=== PATIENT | male | born 1960 | race Caucasian/White ===

== ENCOUNTER 2024-07-08 13:29 | Inpatient (IN) | payer BC ==
--- NOTE | 2024-07-08 13:53 | ED ---
General Adult HPI - General Chief complaint: Recheck/Abnormal Lab/Rx Stated complaint: cough Time Seen by Provider: 07/08/24 13:31 Source: patient, EMS, RN notes reviewed Mode of arrival: EMS Limitations: no limitations - History of Present Illness Initial comments: Patient is a 63-year-old male presenting to the emergency department from urgent care with concerns for A-fib. Patient states for the past week he has had cough and congestion. Green sputum. Nasal drainage. Patient has been very fatigued and having problems sleeping. Patient has orthopnea. No leg edema. No chest pain or palpitations. No history of dysrhythmia. - Related Data Home Medications Medication Instructions Recorded Confirmed No Known Home Medications 10/22/15 07/08/24 Allergies Allergy/AdvReac Type Severity Reaction Status Date / Time No Known Allergies Allergy Verified 07/08/24 14:44 Review of Systems ROS Statement: Those systems with pertinent positive or pertinent negative responses have been documented in the HPI. ROS Other: All systems not noted in ROS Statement are negative. Constitutional: Denies: fever Eyes: Denies: eye pain ENT: Reports: congestion. Denies: ear pain Respiratory: Reports: as per HPI, cough Cardiovascular: Reports: orthopnea. Denies: chest pain, palpitations, edema Endocrine: Reports: fatigue Gastrointestinal: Denies: abdominal pain Genitourinary: Denies: dysuria Past Medical History Past Medical History: No Reported History History of Any Multi-Drug Resistant Organisms: None Reported Past Surgical History: Hernia Repair Past Anesthesia/Blood Transfusion Reactions: No Reported Reaction Past Psychological History: No Psychological Hx Reported Past Alcohol Use History: Daily Past Drug Use History: None Reported - Past Family History Mother Family Medical History: No Reported History General Exam Limitations: no limitations General appearance: alert, in no apparent distress Head exam: Present: normocephalic Eye exam: Present: normal appearance Neck exam: Present: normal inspection Respiratory exam: Present: rales, rhonchi Cardiovascular Exam: Present: tachycardia, irregular rhythm Expanded Peripheral pulses: 2+: Radial (R), Radial (L), Posterior Tibialis (R), Posterior Tibialis (L) GI/Abdominal exam: Present: soft. Absent: tenderness Extremities exam: Present: normal inspection. Absent: pedal edema, calf tenderness Neurological exam: Present: alert Psychiatric exam: Present: normal affect, normal mood Skin exam: Present: normal color Course Vital Signs 07/08/24 07/08/24 13:32 14:23 Temperature 98.1 F Pulse Rate 176 H 172 H Respiratory 20 18 Rate Blood Pressure 122/105 136/110 O2 Sat by Pulse 100 100 Oximetry EKG Findings - EKG Results: EKG: interpreted by ERMD (T wave inversion laterally), normal axis, normal QRS EKG shows: tachycardia, atrial fibrillation Medical Decision Making - Medical Decision Making Was pt. sent in by a medical professional or institution (, PA, CARE CENTER MANAGER, urgent care, hospital, or snf...) When possible be specific @ -No Did you speak to anyone other than the patient for history (EMS, parent, family, police, friend...)? What history was obtained from this source @ -No Did you review nursing and triage notes (agree or disagree)? Why? @ -I reviewed and agree with nursing and triage notes Were old charts reviewed (outside hosp., previous admission, EMS record, old EKG, old radiological studies, urgent care reports/EKG's, snf records)? Report findings @ -No old charts were reviewed Differential Diagnosis (chest pain, altered mental status, abdominal pain women, abdominal pain men, vaginal bleeding, weakness, fever, dyspnea, syncope, headache, dizziness, GI bleed, back pain, seizure, CVA, palpatations, mental health, musculoskeletal)? @ -Differential Palpitations Ventricular arrhythmias, atrial arrhythmias, myocardial infarction, anemia, thyrotoxicosis, electrolyte imbalance, hypokalemia, pulmonary embolism, pulmonary disease, drugs, alcohol, anxiety, stress.... This is not meant to be an all-inclusive list. EKG interpreted by me (3pts min.). @ -As above X-rays interpreted by me (1pt min.). @ -Chest x-ray shows left lower lobe infiltrate CT interpreted by me (1pt min.). @ -None done U/S interpreted by me (1pt. min.). @ -None done What testing was considered but not performed or refused? (CT, X-rays, U/S, labs)? Why? @ -None What meds were considered but not given or refused? Why? @ -None Did you discuss the management of the patient with other professionals (professionals i.e. , [facility], CARE CENTER MANAGER, lab, RT, psych nurse, child protective services social worker, clinical care coordinator, teacher, intelligence officer basic, classification case manager)? Give summary @ -Case was discussed with Dr. Rapp who will admit covering Dr. Lund Was smoking cessation discussed for >3mins.? @ -No Was critical care preformed (if so, how long)? @ -32 minutes critical care time provided Were there social determinants of health that impacted care today? How? (Homelessness, low income, unemployed, alcoholism, drug addiction, transportation, low edu. Level, literacy, decrease access to med. care, retirement, rehab)? @ -No Was there de-escalation of care discussed even if they declined (Discuss DNR or withdrawal of care, Hospice)? DNR status @ -No What co-morbidities impacted this encounter? (DM, HTN, Smoking, COPD, CAD, Cancer, CVA, ARF, Chemo, Hep., AIDS, mental health diagnosis, sleep apnea, morbid obesity)? @ -None Was patient admitted / discharged? Hospital course, mention meds given and route, prescriptions, significant lab abnormalities, going to OR and other pertinent info. @ -Patient presents with upper respiratory symptoms however A-fib RVR on monitor and EKG. Chest x-ray does have concern for left lower lobe infiltrate. RSV positive. Patient will be covered with antibiotics for potential pneumonia. Blood culture and lactic acid and IV antibiotics will all be added. Patient will be admitted with cardiac consult. Admission orders written. Patient reevaluated and updated. Heart rate remains elevated and Cardizem drip is increased Undiagnosed new problem with uncertain prognosis? @ -No Drug Therapy requiring intensive monitoring for toxicity (Heparin, Nitro, Insulin, Cardizem)? @ -Cardizem, heparin Were any procedures done? @ -No Diagnosis/symptom? @ -A-fib with RVR, RSV pneumonia Acute, or Chronic, or Acute on Chronic? @ -Acute, acute Uncomplicated (without systemic symptoms) or Complicated (systemic symptoms)? @ -Default Side effects of treatment? @ -No Exacerbation, Progression, or Severe Exacerbation? @ -No Poses a threat to life or bodily function? How? (Chest pain, USA, PA, pneumonia, PE, COPD, DKA, ARF, appy, cholecystitis, CVA, Diverticulitis, Homicidal, Suicidal, threat to staff... and all critical care pts) @ -Threat to cardiac and pulmonary function - Lab Data Result diagrams: 07/08/24 14:01 07/08/24 14:01 Lab Results 07/08/24 07/08/24 07/08/24 Range/Units 14:01 14: 14:01 WBC 10.9 H (3.8-10.6) k/uL RBC 4.31 (4.30-5.90) m/uL Hgb 11.6 L (13.0-17.5) gm/dL Hct 37.4 L (39.0-53.0) % MCV 86.8 (80.0-100.0) fL MCH 27.0 (25.0-35.0) pg MCHC 31.1 (31.0-37.0) g/dL RDW 15.0 (11.5-15.5) % Plt Count 374 (150-450) k/uL MPV 8.3 Neutrophils % 73 % Lymphocytes % 16 % Monocytes % 7 % Eosinophils % 1 % Basophils % 0 % Neutrophils # 8.0 H (1.3-7.7) k/uL Lymphocytes # 1.8 (1.0-4.8) k/uL Monocytes # 0.8 (0-1.0) k/uL Eosinophils # 0.1 (0-0.7) k/uL Basophils # 0.0 (0-0.2) k/uL Hypochromasia Moderate Poikilocytosis Slight PT 11.1 (10.0-12.5) sec INR 1.0 (<1.2) APTT 24.8 (22.0-30.0) sec Sodium 134 L (137-145) mmol/L Potassium 4.5 (3.5-5.1) mmol/L Chloride 98 (98-107) mmol/L Carbon Dioxide 27 (22-30) mmol/L Anion Gap 9 mmol/L BUN 13 (9-20) mg/dL Creatinine 0.60 L (0.66-1.25) mg/dL Est GFR (CKD-EPI)AfAm >90 (>60 ml/min/1.73 sqM) Est GFR (CKD-EPI)NonAf >90 (>60 ml/min/1.73 sqM) Glucose 104 H (74-99) mg/dL Calcium 8.9 (8.4-10.2) mg/dL Magnesium 2.0 (1.6-2.3) mg/dL Total Bilirubin 1.0 (0.2-1.3) mg/dL AST 75 H (17-59) U/L ALT 74 H (4-49) U/L Alkaline Phosphatase 292 H (38-126) U/L Troponin I (0.000-0.034) ng/mL NT-Pro-B Natriuret Pep 3590 pg/mL Total Protein 6.9 (6.3-8.2) g/dL Albumin 3.5 (3.5-5.0) g/dL Free T4 1.74 (0.78-2.19) ng/dL Influenza Type A (PCR) (Not Detectd) Influenza Type B (PCR) (Not Detectd) RSV (PCR) (Not Detectd) SARS-CoV-2 (PCR) (Not Detectd) 07/08/24 07/08/24 Range/Units 14:01 14:01 WBC (3.8-10.6) k/uL RBC (4.30-5.90) m/uL Hgb (13.0-17.5) gm/dL Hct (39.0-53.0) % MCV (80.0-100.0) fL MCH (25.0-35.0) pg MCHC (31.0-37.0) g/dL RDW (11.5-15.5) % Plt Count (150-450) k/uL MPV Neutrophils % % Lymphocytes % % Monocytes % % Eosinophils % % Basophils % % Neutrophils # (1.3-7.7) k/uL Lymphocytes # (1.0-4.8) k/uL Monocytes # (0-1.0) k/uL Eosinophils # (0-0.7) k/uL Basophils # (0-0.2) k/uL Hypochromasia Poikilocytosis PT (10.0-12.5) sec INR (<1.2) APTT (22.0-30.0) sec Sodium (137-145) mmol/L Potassium (3.5-5.1) mmol/L Chloride (98-107) mmol/L Carbon Dioxide (22-30) mmol/L Anion Gap mmol/L BUN (9-20) mg/dL Creatinine (0.66-1.25) mg/dL Est GFR (CKD-EPI)AfAm (>60 ml/min/1.73 sqM) Est GFR (CKD-EPI)NonAf (>60 ml/min/1.73 sqM) Glucose (74-99) mg/dL Calcium (8.4-10.2) mg/dL Magnesium (1.6-2.3) mg/dL Total Bilirubin (0.2-1.3) mg/dL AST (17-59) U/L ALT (4-49) U/L Alkaline Phosphatase (38-126) U/L Troponin I <0.012 (0.000-0.034) ng/mL NT-Pro-B Natriuret Pep pg/mL Total Protein (6.3-8.2) g/dL Albumin (3.5-5.0) g/dL Free T4 (0.78-2.19) ng/dL Influenza Type A (PCR) Not Detected (Not Detectd) Influenza Type B (PCR) Not Detected (Not Detectd) RSV (PCR) Detected A (Not Detectd) SARS-CoV-2 (PCR) Not Detected (Not Detectd) Disposition Clinical Impression: Atrial fibrillation with RVR, RSV (respiratory syncytial virus pneumonia) Disposition: ADMITTED IP TO THIS HOSP Condition: Serious Is patient prescribed a controlled substance at d/c from ED?: No Referrals: David Lund MD [Primary Care Provider] - 1-2 days Time of Disposition: 14:52
[2024-07-08 14:18] LABS: Basophils % (A) 0 %; Eosinophils # (A) 0.1 k/uL (0-0.7); Eosinophils % (A) 1 %; HCT 37.4 % (39.0-53.0); HGB 11.6 gm/dL (13.0-17.5); Hypochromasia Moderate; Lymphocytes # (A) 1.8 k/uL (1.0-4.8); Lymphocytes % (A) 16 %; MCHC 31.1 g/dL (31.0-37.0); MCV 86.8 fL (80.0-100.0); Mean Platelet Volume 8.3; Monocytes # (A) 0.8 k/uL (0-1.0); Monocytes % (A) 7 %; Neutrophils % (A) 73 %; Platelet Count 374 k/uL (150-450); Poikilocytosis Slight; RBC 4.31 m/uL (4.30-5.90); WBC 10.9 k/uL (3.8-10.6)
[2024-07-08] MEDS: DILTIAZEM DRIP BOLUS FROM BAG 1 MG SOLN IV ONE (14:18)
[2024-07-08] MEDS: DILTIAZEM 125 MG in SODIUM CHLORIDE 0.9% 100 ML IV SCH (14:20)
[2024-07-08 14:28] LABS: Partial Thromboplastin Time 24.8 sec (22.0-30.0); Prothrombin Time 11.1 sec (10.0-12.5)
--- NOTE | 2024-07-08 14:28 | XR ---
EXAMINATION TYPE: XR chest 2V DATE OF EXAM: 07/08/2024 2:17 PM COMPARISON: None. CLINICAL INDICATION: Male, 63 years old with history of dysrhythmia: Shortness of breath TECHNIQUE: XR chest 2V views of the chest are obtained. FINDINGS: Scattered senescent parenchymal changes noted. Hyperinflation compatible with COPD. I cannot exclude left lower lobe atelectasis and/or infiltrate. Heart size is stable. Mediastinal structures are stable and grossly unremarkable. No evidence for hilar prominence. Degenerative changes dorsal spine. IMPRESSION: 1. I cannot exclude left lower lobe atelectasis and/or infiltrate. [facility], , 07/08/2024 2:26 PM
[2024-07-08 14:31] LABS: ALT 74 U/L (4-49); AST 75 U/L (17-59); African American GFR (CKD) >90 (>60 ml/min/1.73 sqM); Albumin 3.5 g/dL (3.5-5.0); Alkaline Phosphatase 292 U/L (38-126); Anion Gap 9 mmol/L; Blood Urea Nitrogen 13 mg/dL (9-20); Calcium 8.9 mg/dL (8.4-10.2); Carbon Dioxide 27 mmol/L (22-30); Chloride 98 mmol/L (98-107); Glucose 104 mg/dL (74-99); Non-African American GFR(CKD) >90 (>60 ml/min/1.73 sqM); Potassium 4.5 mmol/L (3.5-5.1); Sodium 134 mmol/L (137-145); Total Protein 6.9 g/dL (6.3-8.2)
[2024-07-08 14:40] LABS: NT-Pro-B-Type Natriuretic Pept 3590 pg/mL
[2024-07-08 14:47] LABS: Influenza A Not Detected (Not Detectd); Influenza B Not Detected (Not Detectd); RSV Detected (Not Detectd)
[2024-07-08 14:48] LABS: T4, Free (Free Thyroxine) 1.74 ng/dL (0.78-2.19)
[2024-07-08] MEDS ORDERED: NITROGLYCERIN SL TABS 0.4 MG TAB SUBLINGUAL PRN (14:53)
[2024-07-08] MEDS ORDERED: PNEUMONIA PROTOCOL UTILIZED 1 EACH MISC PO PRN (14:53)
[2024-07-08] MEDS: ASPIRIN 81 MG PO STA (15:22)
[2024-07-08] MEDS: HEPARIN SOD,PORK IN 0.45% NACL 25,000 UNIT in 0.45% NACL 1 250ML.BAG IV SCH (15:34)
[2024-07-08] MEDS: HEPARIN SODIUM 1,000 UN/ML (10ML VL) IV ONE (15:34)
[2024-07-08] MEDS: AZITHROMYCIN 500 MG in SODIUM CHLORIDE 0.9% 250 ML IVPB STA (16:25)
[2024-07-08] MEDS ORDERED: CALCIUM CARBONATE 500 MG CHEWABLE PO PRN (17:59)
[2024-07-08] MEDS ORDERED: TEMAZEPAM 15 MG CAP PO PRN (17:59)
[2024-07-08] MEDS ORDERED: LACTULOSE 20 GM/30 ML CUP PO PRN (17:59)
[2024-07-08] MEDS ORDERED: ONDANSETRON 4 MG/2 ML VIAL IVP PRN (17:59)
[2024-07-08] MEDS ORDERED: ACETAMINOPHEN TAB 325 MG TAB PO PRN (17:59)
[2024-07-08] MEDS ORDERED: NALOXONE 0.4 MG/ML 1 ML VIAL IV PRN (17:59)
--- NOTE | 2024-07-08 23:16 | P.HPIM ---
History of Present Illness H&P Date: 07/08/24 Chief Complaint: Cough Pleasant 63-year-old patient who follows with Dr. Omar Lund. For about 7 days patient not been feeling well. Tired. Green sputum. Weak. Chills. Feeling bit tired and rundown. Trouble breathing. Wheezing. Review of systems: GEN.: Fever chills diet EYES: Itchy eyes e HEENT: None NECK: None RESPIRATORY: As above e CARDIOVASCULAR: None GASTROINTESTINAL: None GENITOURINARY: None MUSCULOSKELETAL: None LYMPHATICS: None HEMATOLOGICAL: None PSYCHIATRY: None NEUROLOGICAL: None Social history: . States his just left the house. Unknown if she will come back. 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 5 days drinking anywhere from 10-15 beers a day. Was clean for 8 months before that. Was drinking prior to that. Physical examination: VITAL SIGNS: 98, 176, 20, 122 x 105, 100% on 3 L upon presentation GENERAL: BMI 28.7, lying bed awake uncomfortable. EYES: Pupils equal. Conjunctiva jonathan l. HEENT: External appearance of nose and ears normal, oral cavity grossly normal. NECK: JVD not raised; masses not palpable. HEART: First and second heart sounds are normal; no edema. LUNGS: Respiratory rate increased, diminished breath sound. ABDOMEN: Soft, nontender, liver spleen not palpable, no masses palpable. PSYCH: Alert and oriented x3; mood and affect anxious l. MUSCULOSKELETAL:No Clubbing/cyanosis;muscles-grossly intact NEUROLOGICAL: Cranial nerves grossly intact; no facial asymmetry, power and sensation grossly intact. LYMPHATICS: No lymph nodes palpable in the axilla and neck INVESTIGATIONS, reviewed in the clinical context: July 08, 2024: White count 10.9 hemoglobin 11.6 platelets 374 sodium 134 potassium 4.5 BUN 13 creatinine 0.6 AST 75 ALT 74 alkaline phosphatase 292 Troponin I less than 0.012 x 3 proBNP 3590 TSH 1.6 RSV PCR: Detected [influenza type A, type B, SARS-CoV-2: Not detected] EKG tracing personally reviewed by me-atrial fibrillation with a rate of 178 Chest x-ray film personally reviewed by me-cardiomegaly Assessment plan: -New onset of atrial fibrillation rapid ventricular rate. Patient has been drinking rather excessively in the last 5 days. Possibly precipitating. IV Cardizem drip. IV heparin drip 2D echo. Telemetry. Cardiology consulted. -Hepatitis. Could be alcohol induced Liver ultrasound -Acute RSV pneumonitis -Probable alcohol use disorder Thiamine Past Medical History Past Medical History: No Reported History History of Any Multi-Drug Resistant Organisms: None Reported Past Surgical History: Hernia Repair Past Anesthesia/Blood Transfusion Reactions: No Reported Reaction Past Psychological History: No Psychological Hx Reported Smoking Status: Never smoker Past Alcohol Use History: Daily Past Drug Use History: None Reported - Past Family History Mother Family Medical History: No Reported History Medications and Allergies Home Medications Medication Instructions Recorded Confirmed Type No Known Home Medications 10/22/15 07/08/24 History Allergies Allergy/AdvReac Type Severity Reaction Status Date / Time No Known Allergies Allergy Verified 07/08/24 14:44 Physical Exam Vitals: Vital Signs Temp Pulse Pulse Resp BP BP Pulse Ox 07/08/24 21:13 98.2 F 117 H 18 118/97 95 07/08/24 19:18 126 H 18 108/88 100 07/08/24 18:53 97.8 F 118 H 18 91/76 96 07/08/24 15:36 163 H 18 134/118 98 07/08/24 14:23 172 H 18 136/110 100 07/08/24 13:32 98.1 F 176 H 20 122/105 100 Intake and Output 07/08/24 07/08/24 07/09/24 14:59 22:59 06:59 Intake Total 2.5 75 Balance 2.5 75 Intake: Intake, IV Titration 2.5 75 Amount Diltiazem 125 mg In 2.5 75 Sodium Chloride 0.9% 100 ml @ 5 MG/HR 5 mls/hr IV .Q24H [facility] Rx#:[id number] Other: Voiding Method Toilet Urinal Weight 83.007 kg 83.007 kg Results CBC & Chem 7: 07/08/24 14:01 07/08/24 14:01 Labs: Abnormal Lab Results - Last 24 Hours (Table) 07/08/24 07/08/24 07/08/24 Range/Units 14:01 14:01 14:01 WBC 10.9 H (3.8-10.6) k/uL Hgb 11.6 L (13.0-17.5) gm/dL Hct 37.4 L (39.0-53.0) % Neutrophils # 8.0 H (1.3-7.7) k/uL APTT (22.0-30.0) sec Sodium 134 L (137-145) mmol/L Creatinine 0.60 L (0.66-1.25) mg/dL Glucose 104 H (74-99) mg/dL AST 75 H (17-59) U/L ALT 74 H (4-49) U/L Alkaline Phosphatase 292 H (38-126) U/L RSV (PCR) Detected A (Not Detectd) 07/08/24 Range/Units 17:25 WBC (3.8-10.6) k/uL Hgb (13.0-17.5) gm/dL Hct (39.0-53.0) % Neutrophils # (1.3-7.7) k/uL APTT 33.0 H (22.0-30.0) sec Sodium (137-145) mmol/L Creatinine (0.66-1.25) mg/dL Glucose (74-99) mg/dL AST (17-59) U/L ALT (4-49) U/L Alkaline Phosphatase (38-126) U/L RSV (PCR) (Not Detectd) Thrombosis Risk Factor Assmnt - Choose All That Apply Any of the Below Risk Factors Present?: Yes Each Factor Represents 1 point: Obesity (BMI >25) Each Risk Factor Represents 2 Points: Age 61-74 years Thrombosis Risk Factor Assessment Total Risk Factor Score: 3 Thrombosis Risk Factor Assessment Level: Moderate Risk
[2024-07-09] MEDS: ARTIFICIAL TEARS-HYPROMELLOSE DROPS 15 ML BTL BOTH EYES SCH (01:05)
[2024-07-09 05:56] LABS: Basophils % (A) 0 %; Eosinophils # (A) 0.1 k/uL (0-0.7); Eosinophils % (A) 1 %; HCT 34.9 % (39.0-53.0); HGB 10.9 gm/dL (13.0-17.5); Hypochromasia Moderate; Lymphocytes # (A) 1.6 k/uL (1.0-4.8); Lymphocytes % (A) 20 %; MCH 27.1 pg (25.0-35.0); MCHC 31.4 g/dL (31.0-37.0); MCV 86.4 fL (80.0-100.0); Mean Platelet Volume 8.2; Monocytes # (A) 0.6 k/uL (0-1.0); Monocytes % (A) 7 %; Neutrophils # (A) 5.7 k/uL (1.3-7.7); Neutrophils % (A) 70 %; Platelet Count 391 k/uL (150-450); Poikilocytosis Slight; RBC 4.04 m/uL (4.30-5.90); RDW 15.1 % (11.5-15.5); WBC 8.2 k/uL (3.8-10.6)
[2024-07-09 06:04] LABS: ALT 67 U/L (4-49); AST 61 U/L (17-59); African American GFR (CKD) >90 (>60 ml/min/1.73 sqM); Alkaline Phosphatase 279 U/L (38-126); Anion Gap 9 mmol/L; Blood Urea Nitrogen 12 mg/dL (9-20); Calcium 8.5 mg/dL (8.4-10.2); Carbon Dioxide 27 mmol/L (22-30); Chloride 97 mmol/L (98-107); Glucose 101 mg/dL (74-99); Non-African American GFR(CKD) >90 (>60 ml/min/1.73 sqM); Potassium 4.6 mmol/L (3.5-5.1); Sodium 133 mmol/L (137-145); Total Bilirubin 0.9 mg/dL (0.2-1.3); Total Protein 6.3 g/dL (6.3-8.2)
[2024-07-09] MEDS ORDERED: HEPARIN SODIUM 1,000 UN/ML (10ML VL) IV PRN (06:21)
[2024-07-09] MEDS: HEPARIN SODIUM 1,000 UN/ML (10ML VL) IV PRN (06:31)
--- NOTE | 2024-07-09 07:09 | XR ---
EXAMINATION TYPE: XR chest 1V portable DATE OF EXAM: 07/09/2024 4:36 AM COMPARISON: Chest radiographs from 07/08/2024 TECHNIQUE: XR chest 1V portable Portable AP radiograph of the chest. CLINICAL INDICATION:Male, 63 years old with history of pneumonia; FINDINGS: Lungs/Pleura: There is no evidence of pleural effusion, focal consolidation, or pneumothorax. Diffus e interstitial prominence. Heart/mediastinum: Cardiomediastinal silhouette is enlarged and stable. Musculoskeletal: No acute osseous pathology. IMPRESSION: Cardiomegaly with diffuse interstitial prominence. Etiologies include atypical pneumonia versus pulmo nary vascular congestion. [facility], , 07/09/2024 7:06 AM
[2024-07-09] MEDS: ASPIRIN 325 MG TAB PO SCH (08:26)
[2024-07-09] MEDS: AZITHROMYCIN 500 MG TAB PO SCH (08:26)
[2024-07-09] MEDS: THIAMINE 100 MG TAB PO SCH (08:26)
--- NOTE | 2024-07-09 08:35 | US ---
EXAMINATION TYPE: US abdomen limited DATE OF EXAM: 07/09/2024 COMPARISON: NONE CLINICAL INDICATION: Male, 63 years old with history of Hepatitis; Hepatitis TECHNIQUE: Grayscale and color Doppler imaging of the right upper quadrant was performed. FINDINGS: EXAM MEASUREMENTS: Liver Length: 19.7 cm Gallbladder Wall: 0.4 cm CBD: 0.4 cm Right Kidney: 10.7 x 4.4 x 4.4 cm Pancreas: Obscured by bowel gas Liver: enlarged Gallbladder: thickened GB wall, pericholecystic fluid Evidence for sonographic Luna's sign: no CBD: appears wnl Right Kidney: lower pole obscured by overlying bowel gas, no evidence of hydronephrosis The pancreas is obscured by overlying bowel gas. The liver is enlarged without focal lesion. Noncirrh otic morphology. Gallbladder is thickened measuring up to 0.4 cm with a closed fluid. No gallstones. Negative sonographic Luna's sign. Common bile duct is within normal limits. The visualized portions of the right kidney demonstrate no hydronephrosis, shadowing calculi, or solid mass. IMPRESSION: 1. Gallbladder wall thickening with pericholecystic fluid. No gallstones or positive sonographic Murp hy sign to suggest acute cholecystitis. Probably reactive due to reported hepatitis. 2. Hepatomegaly without focal lesion. [facility], , 07/09/2024 8:32 AM
[2024-07-09] MEDS: METOPROLOL TARTRATE 25 MG TAB PO SCH (09:32)
--- NOTE | 2024-07-09 09:41 | P.CRDCN ---
History of Present Illness History of present illness: HISTORY OF PRESENT ILLNESS: This is a 63-year-old male with no significant past medical history. 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 We have been asked to see the patient in consultation for new onset atrial fibrillation. Patient examined at the bedside. Patient presented to the hospital with flulike symptoms. Patient was found to be positive for RSV. Additionally the patient was found to be in A-fib with RVR. The patient denies any known history of atrial fibrillation. He was started on IV heparin and IV Cardizem. At the time of examination he remains in atrial fibrillation with a heart rate in the 90s. Patient states last week he was gone for bike week and was drinking excessively during that time. He also reports when he came home his had moved out of the house. The patient currently denies any chest pain or pressure. He denies any shortness of breath. DIAGNOSTICS: - EKG reveals A-fib with RVR. - Chest xray cannot exclude left lower lobe atelectasis and/or infiltrate. - Laboratory data: WBC 8.2. Hemoglobin 10.9. Platelet count 391. Sodium 133. Potassium 4.6. BUN 12. Creatinine 0.69. AST 61. ALT 67. Alkaline phosphatase 279. Troponin negative x 3. proBNP 3590. - Current home cardiac medications include none. - No previous echocardiogram, stress test, or cardiac catheterization available in EMR for review REVIEW OF SYSTEMS: At the time of my exam: CONSTITUTIONAL: Denies fever or chills. HEENT: Denies blurred vision, vision changes, or eye pain. Denies hemoptysis CARDIOVASCULAR: Denies chest pain. Denies orthopnea. Denies PND. Denies palpitations RESPIRATORY: Denies shortness of breath. GASTROINTESTINAL: Denies abdominal pain. Denies nausea or vomiting. HEMATOLOGIC: Denies bleeding disorders. GENITOURINARY: Denies any blood in urine. SKIN: Denies pruitis. Denies rash. PHYSICAL EXAM: VITAL SIGNS: Reviewed. GENERAL: Well-developed in no acute distress. HEENT: Head is normocephalic. Pupils are equal, round. Sclerae anicteric. Mucous membranes of the mouth are moist. Neck supple. No JVD or thyromegaly LUNGS: Respirations even and unlabored. Lungs essentially clear to auscultation bilaterally. HEART: Irregular rate and rhythm. S1 and S2 heard. ABDOMEN: Soft. Nondistended. Nontender. EXTREMITIES: Normal range of motion. No clubbing or cyanosis. Peripheral pulses intact. No lower extremity edema NEUROLOGIC: Awake and alert. Oriented x 3. ASSESSMENT: Acute RSV infection New onset atrial fibrillation with RVR, currently rate controlled Transaminitis Alcohol abuse with binge drinking disorder PLAN: Obtain 2D echo to assess cardiac structure and function Begin Eliquis 5 mg twice a day. Discontinue IV heparin Begin metoprolol tartrate 25 mg twice a day Discontinue IV Cardizem Check TSH Continue telemetry monitoring Abstinence from alcohol recommended Further recommendations pending patient course Nurse practitioner note has been reviewed by physician. Signing provider agrees with the documented findings, assessment, and plan of care documented by BUFFING LINE SET UP WORKER as a scribe. Past Medical History Past Medical History: No Reported History History of Any Multi-Drug Resistant Organisms: None Reported Past Surgical History: Hernia Repair Past Anesthesia/Blood Transfusion Reactions: No Reported Reaction Past Psychological History: No Psychological Hx Reported Smoking Status: Never smoker Past Alcohol Use History: Daily Past Drug Use History: None Reported - Past Family History Mother Family Medical History: No Reported History Medications and Allergies Home Medications Medication Instructions Recorded Confirmed Type No Known Home Medications 10/22/15 07/08/24 History Allergies Allergy/AdvReac Type Severity Reaction Status Date / Time No Known Allergies Allergy Verified 07/08/24 14:44 Physical Exam Vitals: Vital Signs Temp Pulse Pulse Resp BP BP Pulse Ox 07/09/24 08:00 98.2 F 87 18 122/89 96 07/09/24 03:34 98.2 F 95 18 121/102 95 07/08/24 23:26 98.1 F 103 H 18 105/81 94 L 07/08/24 21:13 98.2 F 117 H 18 118/97 95 07/08/24 19:18 126 H 18 108/88 100 07/08/24 18:53 97.8 F 118 H 18 91/76 96 07/08/24 15:36 163 H 18 134/118 98 07/08/24 14:23 172 H 18 136/110 100 07/08/24 13:32 98.1 F 176 H 20 122/105 100 Intake and Output 07/08/24 07/09/24 07/09/24 22:59 06:59 14:59 Intake Total 75 167.716 Output Total 400 Balance 75 -232.284 Intake: Intake, IV Titration 75 167.716 Amount Diltiazem 125 mg In 75 Sodium Chloride 0.9% 100 ml @ 5 MG/HR 5 mls/hr IV .Q24H [facility] Rx#:[id number] Heparin Sod,Pork in 0.45% 167.716 NaCl 25,000 unit In 0.45 % NaCl 1 250ml.bag @ 12 UNITS/KG/HR 9.961 mls/hr IV .Q24H [facility] Rx#: [id number] Output: Urine 400 Other: Voiding Method Toilet Toilet Urinal Urinal Weight 83.007 kg Results 07/09/24 05:37 07/09/24 05:37 Cardiac Enzymes 07/08/24 07/08/24 07/08/24 Range/Units 14:01 14:01 17:25 AST 75 H (17-59) U/L Troponin I <0.012 <0.012 (0.000-0.034) ng/mL 07/08/24 07/09/24 Range/Units 21:47 05:37 AST 61 H (17-59) U/L Troponin I <0.012 (0.000-0.034) ng/mL Coagulation 07/08/24 07/08/24 07/08/24 Range/Units 14:01 17:25 21:47 PT 11.1 (10.0-12.5) sec APTT 24.8 33.0 H 25.8 (22.0-30.0) sec 07/09/24 Range/Units 05:37 PT (10.0-12.5) sec APTT 28.4 (22.0-30.0) sec CBC 07/08/24 07/09/24 Range/Units 14:01 05:37 WBC 10.9 H 8.2 (3.8-10.6) k/uL RBC 4.31 4.04 L (4.30-5.90) m/uL Hgb 11.6 L 10.9 L (13.0-17.5) gm/dL Hct 37.4 L 34.9 L (39.0-53.0) % Plt Count 374 391 (150-450) k/uL Comprehensive Metabolic Panel 07/08/24 07/09/24 Range/Units 14:01 05:37 Sodium 134 L 133 L (137-145) mmol/L Potassium 4.5 4.6 (3.5-5.1) mmol/L Chloride 98 97 L (98-107) mmol/L Carbon Dioxide 27 27 (22-30) mmol/L BUN 13 12 (9-20) mg/dL Creatinine 0.60 L 0.69 (0.66-1.25) mg/dL Glucose 104 H 101 H (74-99) mg/dL Calcium 8.9 8.5 (8.4-10.2) mg/dL AST 75 H 61 H (17-59) U/L ALT 74 H 67 H (4-49) U/L Alkaline Phosphatase 292 H 279 H (38-126) U/L Total Protein 6.9 6.3 (6.3-8.2) g/dL Albumin 3.5 3.0 L (3.5-5.0) g/dL Current Medications Generic Name Dose Route Start Last Admin Trade Name Freq PRN Reason Stop Dose Admin Acetaminophen 650 mg 07/08/24 17:59 Acetaminophen Tab 325 Mg Tab PO Q6HR PRN Mild Pain or Fever > 100.5 Alprazolam 0.25 mg 07/08/24 17:59 Alprazolam 0.25 Mg Tab PO Q6HR PRN Anxiety Apixaban 5 mg 07/09/24 09:45 Apixaban 5 Mg Tab PO BID [facility] Protocol Artificial Tears 2 drops 07/08/24 23:15 07/09/24 08:28 Artificial Tears-Hypromellose Drops 15 Ml Btl BOTH EYES 2 drops QID [facility] Administration Azithromycin 500 mg 07/09/24 09:00 07/09/24 08:26 Azithromycin 500 Mg Tab PO 07/10/24 09:01 500 mg DAILY [facility] Administration Protocol Calcium Carbonate/Glycine 1,000 mg 07/08/24 17:59 Calcium Carbonate 500 Mg Chewable PO Q4HR PRN Dyspepsia Heparin Sodium (Porcine) 0 unit 07/09/24 06:25 07/09/24 06:31 Heparin Sodium 1,000 Un/Ml (10ml Vl) IV 4,000 unit PER PROTOCOL PRN Administration Low PTT Protocol Diltiazem HCl 125 mg/ Sodium 125 mls @ 5 mls/hr 07/08/24 14:00 07/08/24 22:20 Chloride IV 10 mg/hr .Q24H [facility] 10 mls/hr Administration 5 MG/HR Ceftriaxone Sodium 2 gm/ 50 mls @ 100 mls/hr 07/09/24 09:00 07/09/24 08:27 Sodium Chloride IVPB 07/12/24 09:29 100 mls/hr Q24HR [facility] Administration Protocol Heparin Sodium/Sodium Chloride 250 mls @ 9.961 mls/hr 07/08/24 15:00 07/09/24 06:32 25,000 unit/ Sodium Chloride IV 18 units/kg/hr .Q24H [facility] 14.941 mls/hr Titration Protocol 12 UNITS/KG/HR Lactulose 20 gm 07/08/24 17:59 Lactulose 20 Gm/30 Ml Cup PO DAILY PRN Constipation Metoprolol Tartrate 25 mg 07/09/24 09:15 07/09/24 09:32 Metoprolol Tartrate 25 Mg Tab PO 25 mg BID [facility] Administration Miscellaneous Information 1 each 07/08/24 14:53 Pneumonia Protocol Utilized 1 Each Misc PO ONCE PRN Per Protocol Naloxone HCl 0.2 mg 07/08/24 17:59 Naloxone 0.4 Mg/Ml 1 Ml Vial IV Q2M PRN Opioid Reversal Nitroglycerin 0.4 mg 07/08/24 14:53 Nitroglycerin Sl Tabs 0.4 Mg Tab SUBLINGUAL Q5M PRN Chest Pain Ondansetron HCl 4 mg 07/08/24 17:59 Ondansetron 4 Mg/2 Ml Vial IVP Q8HR PRN Nausea And Vomiting Temazepam 15 mg 07/08/24 17:59 Temazepam 15 Mg Cap PO HS PRN Insomnia Thiamine HCl 100 mg 07/09/24 09:00 07/09/24 08:26 Thiamine 100 Mg Tab PO 100 mg DAILY [facility] Administration Intake and Output 07/08/24 07/09/24 07/09/24 22:59 06:59 14:59 Intake Total 75 167.716 Output Total 400 Balance 75 -232.284 Intake: Intake, IV Titration 75 167.716 Amount Diltiazem 125 mg In 75 Sodium Chloride 0.9% 100 ml @ 5 MG/HR 5 mls/hr IV .Q24H [facility] Rx#:[id number] Heparin Sod,Pork in 0.45% 167.716 NaCl 25,000 unit In 0.45 % NaCl 1 250ml.bag @ 12 UNITS/KG/HR 9.961 mls/hr IV .Q24H [facility] Rx#: [id number] Output: Urine 400 Other: Voiding Method Toilet Toilet Urinal Urinal Weight 83.007 kg 07/09/24 05:37 07/09/24 05:37
[2024-07-09 09:45] LABS: Chol/HDL Ratio 3.46 Ratio; VLDL Calculation 11.14 mg/dL (5.00-40.00)
[2024-07-09] MEDS: APIXABAN 5 MG TAB PO SCH (10:01)
--- NOTE | 2024-07-09 13:12 | P.PN ---
Progress Note - Text Progress Note Date: 07/09/24 Chief Complaint: Cough Pleasant 63-year-old patient who follows with Dr. Omar Lund. For about 7 days patient not been feeling well. Tired. Green sputum. Weak. Chills. Feeling bit tired and rundown. Trouble breathing. Wheezing. July 09: Overflow in the ER. Breathing better. Slight cough. Eating better. Remains in A-fib. Rate controlled. Taken off IV Cardizem drip. Put on Lopressor. And Eliquis, IV heparin drip discontinued per cardiology. Remains on IV ceftriaxone. Told to increase ambulation in the room. Patient informed about results of liver ultrasound. Possibly alcoholic hepatomegaly. Will check acute hepatitis panel Active Medications Acetaminophen (Acetaminophen Tab 325 Mg Tab) 650 mg PO Q6HR PRN PRN Reason: Mild Pain or Fever > 100.5 Alprazolam (Alprazolam 0.25 Mg Tab) 0.25 mg PO Q6HR PRN PRN Reason: Anxiety Apixaban (Apixaban 5 Mg Tab) 5 mg PO BID [facility]; Protocol Last Admin: 07/09/24 10:01 Dose: 5 mg Artificial Tears (Artificial Tears-Hypromellose Drops 15 Ml Btl) 2 drops BOTH EYES QID [facility] Last Admin: 07/09/24 13:04 Dose: 2 drops Azithromycin (Azithromycin 500 Mg Tab) 500 mg PO DAILY [facility]; Protocol Stop: 07/10/24 09:01 Last Admin: 07/09/24 08:26 Dose: 500 mg Calcium Carbonate/Glycine (Calcium Carbonate 500 Mg Chewable) 1,000 mg PO Q4HR PRN PRN Reason: Dyspepsia Ceftriaxone Sodium 2 gm/ (Sodium Chloride) 50 mls @ 100 mls/hr IVPB Q24HR [facility]; Protocol Stop: 07/12/24 09:29 Last Admin: 07/09/24 08:27 Dose: 100 mls/hr Lactulose (Lactulose 20 Gm/30 Ml Cup) 20 gm PO DAILY PRN PRN Reason: Constipation Metoprolol Tartrate (Metoprolol Tartrate 25 Mg Tab) 25 mg PO BID [facility] Last Admin: 07/09/24 09:32 Dose: 25 mg Miscellaneous Information (Pneumonia Protocol Utilized 1 Each Misc) 1 each PO ONCE PRN PRN Reason: Per Protocol Naloxone HCl (Naloxone 0.4 Mg/Ml 1 Ml Vial) 0.2 mg IV Q2M PRN PRN Reason: Opioid Reversal Nitroglycerin (Nitroglycerin Sl Tabs 0.4 Mg Tab) 0.4 mg SUBLINGUAL Q5M PRN PRN Reason: Chest Pain Ondansetron HCl (Ondansetron 4 Mg/2 Ml Vial) 4 mg IVP Q8HR PRN PRN Reason: Nausea And Vomiting Temazepam (Temazepam 15 Mg Cap) 15 mg PO HS PRN PRN Reason: Insomnia Thiamine HCl (Thiamine 100 Mg Tab) 100 mg PO DAILY [facility] Last Admin: 07/09/24 08:26 Dose: 100 mg Social history: . States his just left the house. Unknown if she will come back. 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 5 days drinking anywhere from 10-15 beers a day. Was clean for 8 months before that. Was drinking prior to that. Physical examination: VITAL SIGNS: 98.2, 96, 16, 108 x 89, 95% room air GENERAL: Reclining, looks better. EYES: Pupils equal. Conjunctiva jonathan l. HEENT: External appearance of nose and ears normal, oral cavity grossly normal. NECK: JVD not raised; masses not palpable. HEART: First and second heart sounds are normal; no edema. LUNGS: Respiratory rate normal, diminished breath sound. ABDOMEN: Soft, nontender, liver spleen not palpable, no masses palpable. PSYCH: Alert and oriented x3; mood and affect anxious l. INVESTIGATIONS, reviewed in the clinical context: Abdominal ultrasound: Thickened gallbladder wall. Pericholecystic fluid. Luna sign negative. Liver is enlarged without focal lesion. Noncirrhotic morphology. No gallstones. CBD normal limits July 09: White count 8.2 hemoglobin 10.9 platelets 391 sodium 133 potassium 4.6 creatinine 0.69. AST 61 ALT 67 alkaline phosphatase 279. LDL 60 July 08, 2024: White count 10.9 hemoglobin 11.6 platelets 374 sodium 134 potassium 4.5 BUN 13 creatinine 0.6 AST 75 ALT 74 alkaline phosphatase 292 Troponin I less than 0.012 x 3 proBNP 3590 TSH 1.6 RSV PCR: Detected [influenza type A, type B, SARS-CoV-2: Not detected] EKG tracing personally reviewed by me-atrial fibrillation with a rate of 178 Chest x-ray film personally reviewed by me-cardiomegaly Assessment plan: -New onset of atrial fibrillation rapid ventricular rate. Patient has been drinking rather excessively in the last 5 days. Possibly precipitating.: Heart rate better controlled IV Cardizem drip. IV heparin drip: Both discontinued Today July 09: Started on Lopressor 25 twice daily and Eliquis. 2D echo-pending. Telemetry. Cardiology following -Possible secondary pneumonia, bacterial suspect gram-negative organism on presentation: Improving IV ceftriaxone, Zithromax -Likely alcoholic hepatitis. Patient advised Liver ultrasound-shows hepatomegaly. No cirrhotic changes Follow-up with Dr. Freddie Waggoner outpatient -Acute RSV pneumonitis - alcohol use disorder Discussed with patient Thiamine Await 2D echo. Switch Lopressor and Eliquis. Increase activity. Past Medical History Past Medical History: No Reported History History of Any Multi-Drug Resistant Organisms: None Reported Past Surgical History: Hernia Repair Past Anesthesia/Blood Transfusion Reactions: No Reported Reaction Past Psychological History: No Psychological Hx Reported Smoking Status: Never smoker Past Alcohol Use History: Daily Past Drug Use History: None Reported
[2024-07-09] MEDS: METOPROLOL TARTRATE 25 MG TAB PO STA (15:14)
[2024-07-09] MEDS: DILTIAZEM DRIP BOLUS FROM BAG 1 MG SOLN IV ONE (19:44)
[2024-07-09] MEDS: DILTIAZEM 125 MG in SODIUM CHLORIDE 0.9% 100 ML IV SCH (19:45)
[2024-07-10 07:55] LABS: Platelet Count 509 k/uL (150-450)
[2024-07-10] MEDS: METOPROLOL TARTRATE 25 MG TAB PO SCH (09:30)
[2024-07-10 10:52] LABS: Hepatitis A Antibody IgM Nonreactive (Nonreactive); Hepatitis B Core IgM Nonreactive (Nonreactive); Hepatitis B Surface Antigen Nonreactive (Nonreactive); Hepatitis C IgG Antibody Nonreactive (Nonreactive)
--- NOTE | 2024-07-10 11:11 | P.PN ---
Subjective HISTORY OF PRESENT ILLNESS: This is a 63-year-old male with no significant past medical history. 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 We have been asked to see the patient in consultation for new onset atrial fibrillation. Patient examined at the bedside. Patient presented to the hospital with flulike symptoms. Patient was found to be positive for RSV. Additionally the patient was found to be in A-fib with RVR. The patient denies any known history of atrial fibrillation. He was started on IV heparin and IV Cardizem. At the time of examination he remains in atrial fibrillation with a heart rate in the 90s. Patient states last week he was gone for bike week and was drinking excessively during that time. He also reports when he came home his had moved out of the house. The patient currently denies any chest pain or pressure. He denies any shortness of breath. DIAGNOSTICS: - EKG reveals A-fib with RVR. - Chest xray cannot exclude left lower lobe atelectasis and/or infiltrate. - Laboratory data: WBC 8.2. Hemoglobin 10.9. Platelet count 391. Sodium 133. Potassium 4.6. BUN 12. Creatinine 0.69. AST 61. ALT 67. Alkaline phosphatase 279. Troponin negative x 3. proBNP 3590. - Current home cardiac medications include none. - No previous echocardiogram, stress test, or cardiac catheterization available in EMR for review 07/10/2024 Patient examined this morning at the bedside in the emergency room. Patient denies chest pain or pressure. He denies shortness of breath. Patient's heart rates were elevated last night and he was put back on IV Cardizem. Telemetry this morning reveals atrial fibrillation with heart rate [place] [id number]. PHYSICAL EXAM: VITAL SIGNS: Reviewed. GENERAL: Well-developed in no acute distress. HEENT: Head is normocephalic. Pupils are equal, round. Sclerae anicteric. Mucous membranes of the mouth are moist. Neck supple. No JVD or thyromegaly LUNGS: Respirations even and unlabored. Lungs essentially clear to auscultation bilaterally. HEART: Irregular rate and rhythm. S1 and S2 heard. ABDOMEN: Soft. Nondistended. Nontender. EXTREMITIES: Normal range of motion. No clubbing or cyanosis. Peripheral pulses intact. No lower extremity edema NEUROLOGIC: Awake and alert. Oriented x 3. ASSESSMENT: Acute RSV infection New onset atrial fibrillation with RVR Transaminitis Alcohol abuse with binge drinking disorder PLAN: 2D echo ordered. Await results. Continue anticoagulation with Eliquis Increase metoprolol tartrate to 50 mg twice a day Discontinue IV Cardizem Continue telemetry monitoring Abstinence from alcohol recommended Patient may be discharged home this afternoon from a cardiac standpoint if his heart rates are well-controlled Further recommendations pending patient course Nurse practitioner note has been reviewed by physician. Signing provider agrees with the documented findings, assessment, and plan of care documented by SENIOR DATA MODELER as a scribe. Objective - Vital Signs Vital signs: Vital Signs Temp 98.2 F 07/09/24 08:00 Pulse 82 07/10/24 04:00 Resp 18 07/10/24 04:00 BP 126/102 07/10/24 04:00 Pulse Ox 95 07/10/24 04:00 FiO2 Intake & Output 07/09/24 07/10/24 07/10/24 18:59 06:59 18:59 Intake Total 118 Output Total 200 Balance 118 -200 Intake: Intake, IV Titration 118 Amount Diltiazem 125 mg In 118 Sodium Chloride 0.9% 100 ml @ 5 MG/HR 5 mls/hr IV .Q24H [facility] Rx#:[id number] Output: Urine 200 Other: Voiding Method Urinal - Labs CBC & Chem 7: 07/10/24 07:35 07/09/24 05:37 Labs: Abnormal Lab Results - Last 24 Hours (Table) 07/10/24 Range/Units 07:35 Plt Count 509 H (150-450) k/uL Microbiology - Last 24 Hours (Table) 07/08/24 15:26 Blood Culture - Preliminary Blood
--- NOTE | 2024-07-10 19:43 | P.PN ---
Progress Note - Text Progress Note Date: 07/10/24 Chief Complaint: Cough Pleasant 63-year-old patient who follows with Dr. Omar Lund. For about 7 days patient not been feeling well. Tired. Green sputum. Weak. Chills. Feeling bit tired and rundown. Trouble breathing. Wheezing. July 09: Overflow in the ER. Breathing better. Slight cough. Eating better. Remains in A-fib. Rate controlled. Taken off IV Cardizem drip. Put on Lopressor. And Eliquis, IV heparin drip discontinued per cardiology. Remains on IV ceftriaxone. Told to increase ambulation in the room. Patient informed about results of liver ultrasound. Possibly alcoholic hepatomegaly. Will check acute hepatitis panel July 10: Saw the patient this afternoon in the ER. Resting heart rate in A-fib 130. Lopressor Jose Luis increased to 50 mg twice daily. Was awaiting 2D echo. On Eliquis. IV ceftriaxone for pneumonia. Breathing better. Up in a chair. Eating fair. Active Medications Acetaminophen (Acetaminophen Tab 325 Mg Tab) 650 mg PO Q6HR PRN PRN Reason: Mild Pain or Fever > 100.5 Alprazolam (Alprazolam 0.25 Mg Tab) 0.25 mg PO Q6HR PRN PRN Reason: Anxiety Apixaban (Apixaban 5 Mg Tab) 5 mg PO BID [facility]; Protocol Last Admin: 07/10/24 09:30 Dose: 5 mg Artificial Tears (Artificial Tears-Hypromellose Drops 15 Ml Btl) 2 drops BOTH EYES QID [facility] Last Admin: 07/10/24 17:14 Dose: Not Given Calcium Carbonate/Glycine (Calcium Carbonate 500 Mg Chewable) 1,000 mg PO Q4HR PRN PRN Reason: Dyspepsia Ceftriaxone Sodium 2 gm/ (Sodium Chloride) 50 mls @ 100 mls/hr IVPB Q24HR [facility]; Protocol Stop: 07/12/24 09:29 Last Admin: 07/10/24 09:31 Dose: 100 mls/hr Lactulose (Lactulose 20 Gm/30 Ml Cup) 20 gm PO DAILY PRN PRN Reason: Constipation Metoprolol Tartrate (Metoprolol Tartrate 25 Mg Tab) 50 mg PO BID [facility] Last Admin: 07/10/24 09:30 Dose: 50 mg Miscellaneous Information (Pneumonia Protocol Utilized 1 Each Misc) 1 each PO ONCE PRN PRN Reason: Per Protocol Naloxone HCl (Naloxone 0.4 Mg/Ml 1 Ml Vial) 0.2 mg IV Q2M PRN PRN Reason: Opioid Reversal Nitroglycerin (Nitroglycerin Sl Tabs 0.4 Mg Tab) 0.4 mg SUBLINGUAL Q5M PRN PRN Reason: Chest Pain Ondansetron HCl (Ondansetron 4 Mg/2 Ml Vial) 4 mg IVP Q8HR PRN PRN Reason: Nausea And Vomiting Temazepam (Temazepam 15 Mg Cap) 15 mg PO HS PRN PRN Reason: Insomnia Thiamine HCl (Thiamine 100 Mg Tab) 100 mg PO DAILY [facility] Last Admin: 07/10/24 09:31 Dose: 100 mg Social history: . States his just left the house. Unknown if she will come back. 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 5 days drinking anywhere from 10-15 beers a day. Was clean for 8 months before that. Was drinking prior to that. Physical examination: VITAL SIGNS: 98.2, 130, 18, 109 breast 95, 95% room air GENERAL: Sitting up in chair, breathing better. EYES: Pupils equal. Conjunctiva jonathan l. HEENT: External appearance of nose and ears normal, oral cavity grossly normal. NECK: JVD not raised; masses not palpable. HEART: Heart sounds regular; no edema. LUNGS: Respiratory rate normal, diminished breath sound. ABDOMEN: Soft, nontender, liver spleen not palpable, no masses palpable. PSYCH: Alert and oriented x3; mood and affect anxious l. INVESTIGATIONS, reviewed in the clinical context: Acute hepatitis panel: Negative Abdominal ultrasound: Thickened gallbladder wall. Pericholecystic fluid. Luna sign negative. Liver is enlarged without focal lesion. Noncirrhotic morphology. No gallstones. CBD normal limits July 09: White count 8.2 hemoglobin 10.9 platelets 391 sodium 133 potassium 4.6 creatinine 0.69. AST 61 ALT 67 alkaline phosphatase 279. LDL 60 July 08, 2024: White count 10.9 hemoglobin 11.6 platelets 374 sodium 134 potassium 4.5 BUN 13 creatinine 0.6 AST 75 ALT 74 alkaline phosphatase 292 Troponin I less than 0.012 x 3 proBNP 3590 TSH 1.6 RSV PCR: Detected [influenza type A, type B, SARS-CoV-2: Not detected] EKG tracing personally reviewed by me-atrial fibrillation with a rate of 178 Chest x-ray film personally reviewed by me-cardiomegaly Assessment plan: -New onset of atrial fibrillation rapid ventricular rate. Patient has been drinking rather excessively in the last 5 days. Possibly precipitating.: Heart rate 130s this afternoon IV Cardizem drip. IV heparin drip: Both discontinued Today Lopressor increased to 50 mg twice daily. Eliquis. 2D echo-pending. Telemetry. Cardiology following -Possible secondary pneumonia, bacterial suspect gram-negative organism on presentation: Improving IV ceftriaxone, Zithromax -Likely alcoholic hepatitis. Patient advised Liver ultrasound-shows hepatomegaly. No cirrhotic changes Follow-up with Dr. Freddie Waggoner outpatient -Acute RSV pneumonitis - alcohol use disorder Discussed with patient Thiamine Await 2D echo. Lopressor increased to 50 twice daily. Eliquis. Increase activity. Discussed with patient Past Medical History Past Medical History: No Reported History History of Any Multi-Drug Resistant Organisms: None Reported Past Surgical History: Hernia Repair Past Anesthesia/Blood Transfusion Reactions: No Reported Reaction Past Psychological History: No Psychological Hx Reported Smoking Status: Never smoker Past Alcohol Use History: Daily Past Drug Use History: None Reported
[2024-07-10] MEDS: DILTIAZEM ORAL 30 MG TAB PO SCH (20:56)
[2024-07-10] MEDS: ALPRAZolam 0.25 MG TAB PO PRN (20:56)
[2024-07-11 06:16] VITALS: RESP 16
[2024-07-11] MEDS: METOPROLOL TARTRATE 25 MG TAB PO STA (06:28)
[2024-07-11 10:04] LABS: Mean Platelet Volume 8.5; Platelet Count 555 k/uL (150-450)
[2024-07-11 11:09] VITALS: TEMP 98
[2024-07-11] MEDS: METOPROLOL TARTRATE 50 MG TAB PO STA (11:16)
--- NOTE | 2024-07-11 12:02 | P.PN ---
Subjective HISTORY OF PRESENT ILLNESS: This is a 63-year-old male with no significant past medical history. 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 We have been asked to see the patient in consultation for new onset atrial fibrillation. Patient examined at the bedside. Patient presented to the hospital with flulike symptoms. Patient was found to be positive for RSV. Additionally the patient was found to be in A-fib with RVR. The patient denies any known history of atrial fibrillation. He was started on IV heparin and IV Cardizem. At the time of examination he remains in atrial fibrillation with a heart rate in the 90s. Patient states last week he was gone for bike week and was drinking excessively during that time. He also reports when he came home his had moved out of the house. The patient currently denies any chest pain or pressure. He denies any shortness of breath. DIAGNOSTICS: - EKG reveals A-fib with RVR. - Chest xray cannot exclude left lower lobe atelectasis and/or infiltrate. - Laboratory data: WBC 8.2. Hemoglobin 10.9. Platelet count 391. Sodium 133. Potassium 4.6. BUN 12. Creatinine 0.69. AST 61. ALT 67. Alkaline phosphatase 279. Troponin negative x 3. proBNP 3590. - Current home cardiac medications include none. - No previous echocardiogram, stress test, or cardiac catheterization available in EMR for review 07/10/2024 Patient examined this morning at the bedside in the emergency room. Patient denies chest pain or pressure. He denies shortness of breath. Patient's heart rates were elevated last night and he was put back on IV Cardizem. Telemetry this morning reveals atrial fibrillation with heart rate [place] [id number]. 07/11/2024 Patient examined this morning at the bedside. Patient currently denies chest pain or pressure. She denies shortness of breath. Telemetry reveals atrial fibrillation with a heart rate in the 120s. Patient was started on oral Cardizem yesterday afternoon by primary medicine. PHYSICAL EXAM: VITAL SIGNS: Reviewed. GENERAL: Well-developed in no acute distress. HEENT: Head is normocephalic. Pupils are equal, round. Sclerae anicteric. Mucous membranes of the mouth are moist. Neck supple. No JVD or thyromegaly LUNGS: Respirations even and unlabored. Lungs essentially clear to auscultation bilaterally. HEART: Irregular rate and rhythm. S1 and S2 heard. ABDOMEN: Soft. Nondistended. Nontender. EXTREMITIES: Normal range of motion. No clubbing or cyanosis. Peripheral pulses intact. No lower extremity edema NEUROLOGIC: Awake and alert. Oriented x 3. ASSESSMENT: Acute RSV infection New onset atrial fibrillation with RVR Transaminitis Alcohol abuse with binge drinking disorder PLAN: 2D echo ordered. Await results. Continue anticoagulation with Eliquis Discontinue oral Cardizem Increase metoprolol tartrate to 100 mg twice a day Continue telemetry monitoring Abstinence from alcohol recommended Patient may be discharged home this afternoon from a cardiac standpoint pending echo results Further recommendations pending patient course Nurse practitioner note has been reviewed by physician. Signing provider agrees with the documented findings, assessment, and plan of care documented by FORENSIC TECHNICIAN as a scribe. Objective - Vital Signs Vital signs: Vital Signs Temp 98 F 07/11/24 08:00 Pulse 125 H 07/11/24 08:00 Resp 16 07/11/24 08:00 BP 114/72 07/11/24 08:00 Pulse Ox 94 L 07/11/24 08:00 FiO2 Intake & Output 07/10/24 07/11/24 07/11/24 18:59 06:59 18:59 Intake Total 1300 500 Balance 1300 500 Weight 82.5 kg Intake: IV 40 20 Invasive Line 1 20 10 Invasive Line 2 20 10 Oral 1260 480 Other: Voiding Method Toilet Toilet Urinal Urinal # Voids 2 - Labs CBC & Chem 7: 07/11/24 07:57 07/09/24 05:37 Labs: Abnormal Lab Results - Last 24 Hours (Table) 07/11/24 Range/Units 07:57 Plt Count 555 H (150-450) k/uL Microbiology - Last 24 Hours (Table) 07/08/24 15:26 Blood Culture - Preliminary Blood
--- NOTE | 2024-07-11 12:13 | CA ---
Transthoracic Echo Report Name: Francis Acuña Age: 63 Gender: M : 1960 Exam Date: 07/11/2024 10:31 Exam Location: [facility] Ht (in): 67 Wt (lb): 183 Ordering Physician: Tino Gerber DO Attending/Referring Phys: Inside Sales Executive Brittni Danielson RDCS Procedure CPT: Indications: a fib Cardiac Hx: A-FIB Technical Quality: Fair Contrast 1: Total Dose (mL): Contrast 2: Total Dose (mL): MEASUREMENTS (Male / Female) Normal Values 2D ECHO LV Diastolic Diameter PLAX 4.1 cm 4.2 - 5.9 / 3.9 - 5.3 cm LV Systolic Diameter PLAX 3.9 cm IVS Diastolic Thickness 1.3 cm 0.6 - 1.0 / 0.6 - 0.9 cm LVPW Diastolic Thickness 1.6 cm 0.6 - 1.0 / 0.6 - 0.9 cm LV Relative Wall Thickness 0.7 RV Internal Dim ED PLAX 3.1 cm LA Systolic Diameter LX 6.1 cm 3.0 - 4.0 / 2.7 - 3.8 cm LV Diastolic Volume MOD BP 89.0 cm??? 67 - 155 / 56 - 104 cm??? LV Systolic Volume MOD BP 73.3 cm??? 22 - 58 / 19 - 49 cm??? LV Ejection Fraction MOD BP 17.6 % >= 55 % LV Cardiac Index MOD BP 939.4 cm???/min???m??? LV Diastolic Volume MOD 4C 90.4 cm??? LV Systolic Volume MOD 4C 59.7 cm??? LV Ejection Fraction MOD 4C 34.0 % LV Cardiac Index MOD 4C 1841.2 cm???/min???m??? LV Diastolic Length 4C 7.5 cm LV Systolic Length 4C 7.1 cm LV Diastolic Volume MOD 2C 83.0 cm??? LV Systolic Volume MOD 2C 87.2 cm??? LV Ejection Fraction MOD 2C -5.0 % LV Cardiac Index MOD 2C -250.5 cm???/min???m??? LV Diastolic Length 2C 7.1 cm LV Systolic Length 2C 7.5 cm M-MODE Aortic Root Diameter MM 3.6 cm LA Systolic Diameter MM 5.5 cm LA Ao Ratio MM 1.5 AV Cusp Separation MM 2.0 cm DOPPLER AI Peak Velocity 338.5 cm/s AI Peak Gradient 45.8 mmHg AI Pressure Half Time 1004.2 ms Mitral E Point Velocity 84.8 cm/s Mitral A Point Velocity 1.0 cm/s Mitral E to A Ratio 86.8 MV Deceleration Time 282.8 ms MV E' Velocity 5.3 cm/s Mitral E to MV E' Ratio 15.9 TR Peak Velocity 229.9 cm/s TR Peak Gradient 21.1 mmHg Right Ventricular Systolic Press 41.2 mmHg FINDINGS Left Ventricle Left ventricular ejection fraction is estimated at 20-25 %. Mildly increased septal wall thickness. Moderately increased left ventricular systolic volume. Severely decreased left ventricular ejection fraction. Right Ventricle Moderate right ventricular dilatation. Mild pulmonary hypertension. Right Atrium Severe right atrial dilatation. Left Atrium Severely increased left atrial diameter. Mitral Valve Structurally normal mitral valve. Mild to moderate mitral regurgitation. No mitral stenosis. Aortic Valve Trileaflet aortic valve. No aortic stenosis. Mild aortic regurgitation. Tricuspid Valve Structurally normal tricuspid valve. Annular dilatation of the tricuspid valve. Moderate tricuspid regurgitation. Pulmonic Valve Structurally normal pulmonic valve. Mild pulmonic regurgitation. No pulmonic stenosis. Pericardium No pericardial or pleural effusion. Aorta Aorta at upper limits of normal. CONCLUSIONS Left ventricle is at upper limits of normal with a global decrease in contractility estimate ejection fraction of 25%. Patient is in atrial fibrillation tachycardic. There is mild to moderate mitral, mild aortic and moderate tricuspid regurgitation with mild to moderate pulmonary hypertension. No pericardial effusion. There is moderate enlargement of right ventricle noted with significant enlargement of both atria Previewed by: Dr. Blade Crum MD (Electronically Signed) Final Date: 11 July 2024 12:13
[2024-07-11] MEDS: DIGOXIN 125 MCG TAB PO SCH (13:04)
[2024-07-11 15:05] VITALS: BP 119/74; PULSE 74
--- NOTE | 2024-07-11 19:37 | P.DS ---
Providers Date of admission: 07/08/24 14:53 Expected date of discharge: 07/11/24 Attending physician: Karl Rapp Consults: 07/08/24 14:53 Consult Physician Routine Consulting Provider: Khanh Bentley Consult Reason/Comments: afib rvr Do you want consulting provider notified?: Yes Primary care physician: [facility] Course: Chief Complaint: Cough Pleasant 63-year-old patient who follows with Dr. Omar Lund. For about 7 days patient not been feeling well. Tired. Green sputum. Weak. Chills. Feeling bit tired and rundown. Trouble breathing. Wheezing. July 09: Overflow in the ER. Breathing better. Slight cough. Eating better. Remains in A-fib. Rate controlled. Taken off IV Cardizem drip. Put on Lopressor. And Eliquis, IV heparin drip discontinued per cardiology. Remains on IV ceftriaxone. Told to increase ambulation in the room. Patient informed about results of liver ultrasound. Possibly alcoholic hepatomegaly. Will check acute hepatitis panel July 10: Saw the patient this afternoon in the ER. Resting heart rate in A-fib 130. Lopressor Jose Luis increased to 50 mg twice daily. Was awaiting 2D echo. On Eliquis. IV ceftriaxone for pneumonia. Breathing better. Up in a chair. Eating fair. July 11: This morning heart rate was in 120s. Per cardiology patient was Lopressor increased to 100 mg twice a day. Cardizem small dose started yesterday was discontinued. Patient was cleared by cardiology for discharge. Follow-up orders per cardio. EF is come back to 20-25%. Patient follow-up with Dr. Scarlet Waggoner in 3 days. Patient is up and about without any cardiac symptoms. Social history: . States his just left the house. Unknown if she will come back. 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 5 days drinking anywhere from 10-15 beers a day. Was clean for 8 months before that. Was drinking prior to that. Physical examination: VITAL SIGNS: 98.2, 130, 18, 109 breast 95, 95% room air GENERAL: Sitting up in chair, breathing better. EYES: Pupils equal. Conjunctiva jonathan l. HEENT: External appearance of nose and ears normal, oral cavity grossly normal. NECK: JVD not raised; masses not palpable. HEART: Heart sounds regular; no edema. LUNGS: Respiratory rate normal, diminished breath sound. ABDOMEN: Soft, nontender, liver spleen not palpable, no masses palpable. PSYCH: Alert and oriented x3; mood and affect anxious l. INVESTIGATIONS, reviewed in the clinical context: 2D echo: EF 25% mild to moderate mitral, mild aortic, moderate TR, mild to moderate pulmonary hypertension. Acute hepatitis panel: Negative Abdominal ultrasound: Thickened gallbladder wall. Pericholecystic fluid. Luna sign negative. Liver is enlarged without focal lesion. Noncirrhotic morphology. No gallstones. CBD normal limits July 09: White count 8.2 hemoglobin 10.9 platelets 391 sodium 133 potassium 4.6 creatinine 0.69. AST 61 ALT 67 alkaline phosphatase 279. LDL 60 July 08, 2024: White count 10.9 hemoglobin 11.6 platelets 374 sodium 134 potassium 4.5 BUN 13 creatinine 0.6 AST 75 ALT 74 alkaline phosphatase 292 Troponin I less than 0.012 x 3 proBNP 3590 TSH 1.6 RSV PCR: Detected [influenza type A, type B, SARS-CoV-2: Not detected] EKG tracing personally reviewed by me-atrial fibrillation with a rate of 178 Chest x-ray film personally reviewed by me-cardiomegaly Assessment plan: -Persistent atrial fibrillation rapid ventricular rate. Patient has been drinking rather excessively in the last 5 days. Possibly precipitating.: IV Cardizem drip. IV heparin drip: Both discontinued Today Lopressor increased to 100 mg twice daily. Eliquis. Telemetry. Cleared by cardiology -Cardiomyopathy with EF of 25%. Could be secondary to atrial fibrillation. Will need cardiac catheterization for further workup. Follow-up with Dr. Scarlet Waggoner 3 days. - mild to moderate mitral, mild aortic, moderate TR, mild to moderate pulmonary hypertension. -Possible secondary pneumonia, bacterial suspect gram-negative organism on presentation: Improving IV ceftriaxone, Zithromax DC on Ceftin for 2 days -Likely alcoholic hepatitis. Patient advised Liver ultrasound-shows hepatomegaly. No cirrhotic changes Follow-up with Dr. Freddie Waggoner outpatient -Acute RSV pneumonitis - alcohol use disorder Discussed with patient Thiamine Disposition: Home Past Medical History Past Medical History: No Reported History History of Any Multi-Drug Resistant Organisms: None Reported Past Surgical History: Hernia Repair Past Anesthesia/Blood Transfusion Reactions: No Reported Reaction Past Psychological History: No Psychological Hx Reported Smoking Status: Never smoker Past Alcohol Use History: Daily Past Drug Use History: None Reported Plan - Discharge Summary Discharge Rx Participant: Yes New Discharge Prescriptions: New Digoxin [Lanoxin] 125 mcg PO DAILY #30 tab Pravastatin Sodium [Pravachol] 20 mg PO HS #30 tab Artificial Tears-Hypromellose [Artificial Tear Drops] 2 drops BOTH EYES QID ml cefuroxime axetiL [Ceftin] 500 mg PO BID #4 tab Apixaban [Eliquis] 5 mg PO BID #60 tab Metoprolol Tartrate [Lopressor] 100 mg PO BID #60 tablet Thiamine [Vitamin B-1] 100 mg PO DAILY #30 tab Discharge Medication List Apixaban [Eliquis] 5 mg PO BID #60 tab 07/11/24 [Rx] Artificial Tears-Hypromellose [Artificial Tear Drops] 2 drops BOTH EYES QID ml 07/11/24 [Rx] Digoxin [Lanoxin] 125 mcg PO DAILY #30 tab 07/11/24 [Rx] Metoprolol Tartrate [Lopressor] 100 mg PO BID #60 tablet 07/11/24 [Rx] Pravastatin Sodium [Pravachol] 20 mg PO HS #30 tab 07/11/24 [Rx] Thiamine [Vitamin B-1] 100 mg PO DAILY #30 tab 07/11/24 [Rx] cefuroxime axetiL [Ceftin] 500 mg PO BID #4 tab 07/11/24 [Rx] Follow up Appointment(s)/Referral(s): Julia Waggoner MD [STAFF PHYSICIAN] - 2 Weeks (Alcoholic hepatomegaly Office closed, please call to schedule) David Lund MD [Primary Care Provider] - 1-2 days (Appt 07/17 1:00pm) Lucio Waggoner MD [STAFF PHYSICIAN] - 3 Days (EF 20-25%, new onset A-fib Wed07/14/2024 @3:45pm) Discharge/Stand Alone Forms: [facility], Who Do I Call?, Outpatient Counseling, Inp Substance Abuse Facilities Discharge Disposition: HOME WITH HOME HEALTH SERVICES
[2024-07-11] MEDS ORDERED: PRAVASTATIN SODIUM 20 MG TAB PO SCH (21:00)
[2024-07-11] MEDS ORDERED: METOPROLOL TARTRATE 50 MG TAB PO SCH (21:00)
== END 2024-07-11 13:28 | disposition home or self-care (01) | DRG 308 ==
LOC: EC 13:29 → 3SCARD 14:53 → 4SSUR 07-10 17:09 → 3SCARD 07-10 20:36
PROVIDERS: ADMIT Hospitalist; ATTEND Hospitalist
PROC: 3E033RZ Introduction of Antiarrhythmic into Peripheral Vein, Percutaneous Approach (ICD-10-PCS; principal; 2024-07-08)
DX: I48.19 Other persistent atrial fibrillation (principal); J12.1 Respiratory syncytial virus pneumonia; J15.69 Pneumonia due to other Gram-negative bacteria; I27.20 Pulmonary hypertension, unspecified; K70.10 Alcoholic hepatitis without ascites; I42.9 Cardiomyopathy, unspecified; F10.10 Alcohol abuse, uncomplicated
CPT/HCPCS: 36415; 71045; 71046; 76705; 80053; 80061; 80074; 83735; 83880; 84145; 84439; 84443; 84481; 84484; 85025; 85049; 85610; 85730; 87040; 87449; 87636; 93005; 93306; 96365; 96366; 96367; 96368; 96376; 99291

== ENCOUNTER → 2024-07-20 | Day surgery (SDC) | payer BC ==
[2024-07-17 15:56] VITALS: BMI 28.6
[~2024-07-20] MED LIST: ALPRAZolam 0.25 MG TAB PO PRN; ALPRAZolam 0.5 MG TAB PO PRN; ATORVASTATIN 80 MG TAB PO ONE; NITROGLYCERIN SL TABS 0.4 MG TAB SUBLINGUAL PRN; RX INFO: IV CONTRAST WAS GIVEN 1 EACH MISC MISCELLANE PRN; SODIUM CHLORIDE 0.9% 1,000 ML IV SCH
[2024-07-20] MEDS: SODIUM CHLORIDE 0.9% 1,000 ML in EMPTY BAG 1 BAG IV SCH (09:15)
[2024-07-20] MEDS: IV FLUID CONTINUATION 1,000 ML IV ONE (09:15)
[2024-07-20] MEDS: ASPIRIN 325 MG TAB PO ONE (09:23)
[2024-07-20 09:26] LABS: Basophils % (A) 0 %; Eosinophils # (A) 0.1 k/uL (0-0.7); Eosinophils % (A) 1 %; HCT 42.2 % (39.0-53.0); HGB 12.5 gm/dL (13.0-17.5); Hypochromasia Marked; Lymphocytes # (A) 1.9 k/uL (1.0-4.8); Lymphocytes % (A) 29 %; MCH 26.1 pg (25.0-35.0); MCHC 29.7 g/dL (31.0-37.0); MCV 87.8 fL (80.0-100.0); Mean Platelet Volume 7.6; Monocytes # (A) 0.4 k/uL (0-1.0); Monocytes % (A) 6 %; Neutrophils # (A) 3.9 k/uL (1.3-7.7); Neutrophils % (A) 61 %; Platelet Count 630 k/uL (150-450); RBC 4.81 m/uL (4.30-5.90); RDW 15.1 % (11.5-15.5); WBC 6.5 k/uL (3.8-10.6)
[2024-07-20 09:35] VITALS: RESP 16; TEMP 97.8
[2024-07-20] MEDS: HEPARIN SODIUM,PORCINE 10,000 UNIT in SODIUM CHLORIDE 0.9% 1,000 ML IRRIGATION PRN (10:14)
[2024-07-20] MEDS: HEPARIN SODIUM,PORCINE (1 ML) 2,500 UNIT in SODIUM CHLORIDE 0.9% 250 ML IRRIGATION PRN (10:14)
[2024-07-20] MEDS: fentaNYL (PF) 50 MCG/ML 2 ML AMP IVP ONE (10:35)
[2024-07-20] MEDS: MIDAZOLAM 2 MG/2 ML VIAL IVP ONE (10:36)
[2024-07-20] MEDS: LIDOCAINE 1% INJ 10MG/ML (20 ML MDV) SQ ONE (10:36)
[2024-07-20] MEDS: VERAPAMIL SYRINGE (5 MG/10 ML) INTRAARTER ONE (10:39)
[2024-07-20] MEDS: HEPARIN SODIUM 1,000 UN/ML (10ML VL) IV ONE (10:41)
[2024-07-20] MEDS: IOPAMIDOL-370 100ML BTL INJ ONE (10:47)
[2024-07-20 19:25] VITALS: BP 129/81; PULSE 120
--- NOTE | 2024-07-24 14:20 | CC ---
CARDIAC CATHETERIZATION REPORT PROCEDURE PERFORMED: Cardiac catheterization. INDICATION: Cardiomyopathy with severe LV systolic dysfunction. PROCEDURE NOTE: After obtaining informed consent, left heart catheterization and coronary angiogram were performed via the right radial artery using standard Renea catheters. The patient tolerated the procedure well without any obvious immediate complications. The patient received moderate conscious sedation. Total sedation time was 12 minutes. A TR band will be used for hemostasis. Right radial artery access was obtained using Seldinger technique, 6-Micronesian sheath was placed. Catheters and wires were floated into the ascending aorta under fluoroscopic guidance. The patient received verapamil and heparin per protocol. FINDINGS: 1. HEMODYNAMICS: Left ventricular end-diastolic pressure is 8 mm. There is no significant gradient across the aortic valve. 2. LEFT VENTRICULOGRAM: Left ventriculogram is not performed. 3. ANGIOGRAPHIC DATA: a.Right coronary artery: Right coronary artery is a large dominant vessel and is free of significant stenosis. b.Left main coronary artery is a normal-sized vessel and is free of stenosis. Divides into left anterior descending coronary artery and circumflex coronary artery. 4. LAD and its branches, circumflex coronary artery and its branches are free of significant stenosis. CONCLUSIONS: 1. Dilated cardiomyopathy with severe LV dysfunction. 2. No significant obstructive CAD. 3. Atrial fibrillation with poorly controlled ventricular rate. PLAN: I am going to increase the dose of metoprolol to 100 mg in the morning, 100 in the evening and then 50 in the afternoon and increase the dose of digoxin to 0.25 mg daily. I will add JUANCARLOS inhibitors if the blood pressure tolerates it. I am going to refer the patient to EP for further care. MMODL / IJN: [id number] /
== END ==
LOC: CATHCVL 08:27
PROVIDERS: ATTEND Internal Medicine Cardiovascular Disease
DX: I42.0 Dilated cardiomyopathy (principal); I48.19 Other persistent atrial fibrillation; I11.0 Hypertensive heart disease with heart failure; I50.20 Unspecified systolic (congestive) heart failure; E78.2 Mixed hyperlipidemia; Z79.899 Other long term (current) drug therapy; Z79.01 Long term (current) use of anticoagulants
CPT/HCPCS: 93458; 85025; 99152; C1894; J2250; J1644 ×3; J2003; J3010; Q9967

== ENCOUNTER 2024-08-24 19:10 | Emergency (ER) | payer MEDICARE ==
[2024-08-24 19:16] VITALS: TEMP 97.3
[2024-08-24 21:10] LABS: Basophils # (A) 0.04 10*3/uL (0.00-0.10); Basophils % (A) 0.6 %; Eosinophils % (A) 1.4 %; HCT 40.3 % (39.6-50.0); Lymphocytes # (A) 2.51 10*3/uL (0.90-5.00); Lymphocytes % (A) 35.2 %; MCH 26.6 pg (27.0-32.0); MCHC 32.3 g/dL (32.0-37.0); MCV 82.4 fL (80.0-97.0); Mean Platelet Volume 10.1 fL (9.5-12.2); Monocytes # (A) 0.86 10*3/uL (0.20-1.00); Monocytes % (A) 12.1 %; Neutrophils # (A) 3.61 10*3/uL (1.80-7.70); Neutrophils % (A) 50.6 %; Platelet Count 364 10*3/uL (140-440); RBC 4.89 10*6/uL (4.40-5.60); RDW 17.8 % (11.5-14.5); WBC 7.13 10*3/uL (4.50-10.00)
[2024-08-24 21:44] LABS: ALT 66 U/L (4-49); AST 59 U/L (17-59); African American GFR (CKD) >90 (>60 ml/min/1.73 sqM); Albumin 3.7 g/dL (3.5-5.0); Alkaline Phosphatase 146 U/L (38-126); Anion Gap 10 mmol/L; Blood Urea Nitrogen 20 mg/dL (9-20); Calcium 9.3 mg/dL (8.4-10.2); Carbon Dioxide 24 mmol/L (22-30); Chloride 105 mmol/L (98-107); Glucose 75 mg/dL (74-99); Non-African American GFR(CKD) >90 (>60 ml/min/1.73 sqM); Potassium 5.1 mmol/L (3.5-5.1); Sodium 139 mmol/L (137-145); Total Bilirubin 0.3 mg/dL (0.2-1.3); Total Protein 6.9 g/dL (6.3-8.2)
--- NOTE | 2024-08-24 21:56 | ED ---
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 Patient has a scheduled cardioversion for atrial fibrillation tomorrow morning with Dr. Waggoner. He had preop labs done today. He was contacted by screen printing supervisor Dr. Ekta rincon saying that his potassium was elevated and he needed to come to the ER immediately. Patient does not report any symptoms at this time. No palpitations, chest pain, difficulty breathing, abdominal pain, weakness, nausea, vomiting. No history of kidney disease. No history of electrolyte abnormalities. - Related Data Home Medications Medication Instructions Recorded Confirmed Amiodarone [Cordarone] 200 mg PO BID 08/23/24 08/23/24 Digoxin 250 mcg PO QAM 08/23/24 08/23/24 Metoprolol Tartrate [Lopressor] 50 mg PO DAILY@1200 08/23/24 08/23/24 Previous Rx's Medication Instructions Recorded Apixaban [Eliquis] 5 mg PO BID #60 tab 07/11/24 Metoprolol Tartrate [Lopressor] 100 mg PO BID #60 tablet 07/11/24 Pravastatin Sodium [Pravachol] 20 mg PO HS #30 tab 07/11/24 Allergies Allergy/AdvReac Type Severity Reaction Status Date / Time No Known Allergies Allergy Verified 08/24/24 19:13 Review of Systems ROS Statement: Those systems with pertinent positive or pertinent negative responses have been documented in the HPI. ROS Other: All systems not noted in ROS Statement are negative. Past Medical History Past Medical History: Atrial Fibrillation, Heart Failure Additional Past Medical History / Comment(s): Hospitalized 07/08/24-07/11/24 for RSV/pneumonia, new onset Afib and heart failure per Dr. Waggoner's H&P. History of Any Multi-Drug Resistant Organisms: None Reported Past Surgical History: Heart Catheterization, Hernia Repair Additional Past Surgical History / Comment(s): Recent heart cath 3 weeks ago-no stent/intervention needed. Past colonoscopy. Past Anesthesia/Blood Transfusion Reactions: Previous Problems w/ Anesthesia, Motion Sickness Additional Past Anesthesia/Blood Transfusion Reaction / Comment(s): States during last colonoscopy he "felt foggy for a couple days after anesthesia-he did not like it." No hx of blood transfusion; experiences motion sickness on a desirae at. Past Psychological History: No Psychological Hx Reported Smoking Status: Never smoker Past Alcohol Use History: None Reported Past Drug Use History: None Reported - Past Family History Mother Family Medical History: No Reported History General Exam Limitations: no limitations General appearance: alert, in no apparent distress Head exam: Present: atraumatic, normocephalic, normal inspection Eye exam: Present: normal appearance, EOMI Neck exam: Present: normal inspection. Absent: meningismus Respiratory exam: Present: normal lung sounds bilaterally. Absent: respiratory distress, wheezes, rales, rhonchi, stridor Cardiovascular Exam: Present: regular rate, irregular rhythm, normal heart sounds. Absent: systolic murmur, diastolic murmur, rubs, gallop, clicks Neurological exam: Present: alert, oriented X3 Psychiatric exam: Present: normal affect, normal mood Skin exam: Present: warm, dry, normal color Course Vital Signs 08/24/24 08/24/24 08/24/24 19:13 20:54 22:09 Temperature 97.3 F L 97.3 F L Pulse Rate 98 94 102 H Respiratory 18 19 18 Rate Blood Pressure 133/90 122/95 111/93 O2 Sat by Pulse 99 99 99 Oximetry Medical Decision Making - Medical Decision Making Was pt. sent in by a medical professional or institution (MILAGRO White, CLINICAL BIOSTATISTICS DIRECTOR, urgent care, hospital, or long-term...) When possible be specific @ -Tableau Developer Did you speak to anyone other than the patient for history (EMS, parent, family, police, friend...)? What history was obtained from this source @ -No Did you review nursing and triage notes (agree or disagree)? Why? @ -I reviewed and agree with nursing and triage notes Were old charts reviewed (outside hosp., previous admission, EMS record, old EKG, old radiological studies, urgent care reports/EKG's, long-term records)? Report findings @ -No old charts were reviewed Differential Diagnosis (chest pain, altered mental status, abdominal pain women, abdominal pain men, vaginal bleeding, weakness, fever, dyspnea, syncope, headache, dizziness, GI bleed, back pain, seizure, CVA, palpatations, mental health, musculoskeletal)? @ -Differential includes hemolyzed specimen, CKD, medication induced, not an all-inclusive list EKG interpreted by me (3pts min.). @ -As above X-rays interpreted by me (1pt min.). @ -None done CT interpreted by me (1pt min.). @ -None done U/S interpreted by me (1pt. min.). @ -None done What testing was considered but not performed or refused? (CT, X-rays, U/S, labs)? Why? @ -None What meds were considered but not given or refused? Why? @ -None Did you discuss the management of the patient with other professionals (professionals i.e. , PA, CLINICAL BIOSTATISTICS DIRECTOR, lab, RT, psych nurse, social media assistant, refuge worker, teacher, traffic control officer, senior case manager)? Give summary @ -No Was smoking cessation discussed for >3mins.? @ -No Was critical care preformed (if so, how long)? @ -No Were there social determinants of health that impacted care today? How? (Homelessness, low income, unemployed, alcoholism, drug addiction, transportation, low edu. Level, literacy, decrease access to med. care, senior living, rehab)? @ -No Was there de-escalation of care discussed even if they declined (Discuss DNR or withdrawal of care, Hospice)? DNR status @ -No What co-morbidities impacted this encounter? (DM, HTN, Smoking, COPD, CAD, Cancer, CVA, ARF, Chemo, Hep., AIDS, mental health diagnosis, sleep apnea, m orbid obesity)? @ -None Was patient admitted / discharged? Hospital course, mention meds given and route, prescriptions, significant lab abnormalities, going to OR and other pertinent info. @ -64-year-old male presenting with chief complaint of elevated potassium. He had some preop labs today for his cardioversion scheduled for tomorrow morning and was told he an elevated potassium needed to come to the ER. Patient reports no symptoms at this time. History and physical examination are conducted. Potassium here is 5.1, previous specimen was likely hemolyzed. Remainder of lab work requires no immediate action. He is educated on today's findings. Follow-up with PCP. Report back to ER with any new or worsening symptoms. Discussed return parameters and answered all questions. Patient conveyed verbal understanding and agreed to the plan. I discussed this case in detail with my attending Dr. Delgadillo Undiagnosed new problem with uncertain prognosis? @ -No Drug Therapy requiring intensive monitoring for toxicity (Heparin, Nitro, Insulin, Cardizem)? @ -No Were any procedures done? @ -No Diagnosis/symptom? @ -Encounter for laboratory redraw Acute, or Chronic, or Acute on Chronic? @ -Acute Uncomplicated (without systemic symptoms) or Complicated (systemic symptoms)? @ -Uncomplicated Side effects of treatment? @ -No Exacerbation, Progression, or Severe Exacerbation? @ -No Poses a threat to life or bodily function? How? (Chest pain, USA, NC, pneumonia, PE, COPD, DKA, ARF, appy, cholecystitis, CVA, Diverticulitis, Homicidal, Suicidal, threat to staff... and all critical care pts) @ -Unlikely - Lab Data Result diagrams: 08/24/24 20:44 08/24/24 20:44 Lab Results 08/24/24 08/24/24 Range/Units 20:44 20:44 WBC 7.13 (4.50-10.00) 10*3/uL RBC 4.89 (4.40-5.60) 10*6/uL Hgb 13.0 (13.0-17.0) g/dL Hct 40.3 (39.6-50.0) % MCV 82.4 (80.0-97.0) fL MCH 26.6 L (27.0-32.0) pg MCHC 32.3 (32.0-37.0) g/dL Plt Count 364 (140-440) 10*3/uL MPV 10.1 (9.5-12.2) fL Immature Gran % (Auto) 0.1 % Neutrophils % 50.6 % Lymphocytes % 35.2 % Monocytes % 12.1 % Eosinophils % 1.4 % Basophils % 0.6 % Immature Gran # 0.01 (0.00-0.04) 10*3/uL Neutrophils # 3.61 (1.80-7.70) 10*3/uL Lymphocytes # 2.51 (0.90-5.00) 10*3/uL Monocytes # 0.86 (0.20-1.00) 10*3/uL Eosinophils # 0.10 (0.04-0.35) 10*3/uL Basophils # 0.04 (0.00-0.10) 10*3/uL Sodium 139 (137-145) mmol/L Potassium 5.1 (3.5-5.1) mmol/L Chloride 105 (98-107) mmol/L Carbon Dioxide 24 (22-30) mmol/L Anion Gap 10 mmol/L BUN 20 (9-20) mg/dL Creatinine 0.83 (0.66-1.25) mg/dL Est GFR (CKD-EPI)AfAm >90 (>60 ml/min/1.73 sqM) Est GFR (CKD-EPI)NonAf >90 (>60 ml/min/1.73 sqM) Glucose 75 (74-99) mg/dL Calcium 9.3 (8.4-10.2) mg/dL Total Bilirubin 0.3 (0.2-1.3) mg/dL AST 59 (17-59) U/L ALT 66 H (4-49) U/L Alkaline Phosphatase 146 H (38-126) U/L Total Protein 6.9 (6.3-8.2) g/dL Albumin 3.7 (3.5-5.0) g/dL Disposition Clinical Impression: Encounter for laboratory test Disposition: HOME SELF-CARE Condition: Good Additional Instructions: Follow-up with your PCP. Report back to ER with any new or worsening symptoms. Is patient prescribed a controlled substance at d/c from ED?: No Referrals: David Lund MD [Primary Care Provider] - 1-2 days Time of Disposition: 21:56
[2024-08-24 22:10] VITALS: BP 111/93; PULSE 102; RESP 18
== END 2024-08-24 22:10 | disposition home or self-care (01) ==
LOC: EC 19:10
DX: Z01.812 Encounter for preprocedural laboratory examination (principal); Z79.01 Long term (current) use of anticoagulants
CPT/HCPCS: 36415; 80053; 85025; 93005; 99283

== ENCOUNTER → 2024-08-24 | Outpatient (CLI) | payer SELFPAY ==
[2024-08-24 16:44] LABS: Blood Urea Nitrogen 17.2 mg/dL (9.0-27.0); Calcium 9.4 mg/dL (8.7-10.3); Chloride 105 mmol/L (96-109); Glucose 95 mg/dL (70-110); Potassium 6.1 mmol/L (3.5-5.5); Sodium 137 mmol/L (135-145)
== END | disposition home or self-care (01) ==
LOC: LABPAT 10:14
PROVIDERS: ATTEND Internal Medicine Cardiovascular Disease
DX: Z01.812 Encounter for preprocedural laboratory examination (principal); I48.11 Longstanding persistent atrial fibrillation
CPT/HCPCS: 36415; 80048

== ENCOUNTER 2024-08-29 06:05 | Day surgery (SDC) | payer MEDICARE ==
[2024-08-28 09:47] VITALS: BMI 27.7
[~2024-08-29 06:05] MED LIST changes: -ALPRAZolam 0.25 MG TAB PO PRN; -ALPRAZolam 0.5 MG TAB PO PRN; -ATORVASTATIN 80 MG TAB PO ONE; -NITROGLYCERIN SL TABS 0.4 MG TAB SUBLINGUAL PRN; -RX INFO: IV CONTRAST WAS GIVEN 1 EACH MISC MISCELLANE PRN
[2024-08-29 06:52] VITALS: BP 131/73; PULSE 47; RESP 18; TEMP 98.4
[2024-08-29] MEDS ORDERED: BENZOCAINE SPRAY 1 EACH MUCOUS MEM STA (07:00)
== END 2024-08-29 07:19 | disposition home or self-care (01) ==
LOC: OR 06:05
PROVIDERS: ATTEND Internal Medicine Cardiovascular Disease
DX: Z53.9 Procedure and treatment not carried out, unspecified reason (principal); I48.11 Longstanding persistent atrial fibrillation